=== PATIENT | female | born 1955 | race Caucasian/White ===

== ENCOUNTER 2017-01-08 13:02 | Day surgery (SDC) | payer OTHER ==
[2017-01-07 13:18] LABS: ASPARTATE AMINO TRANSFERASE 27 U/L (15-37); BLOOD UREA NITROGEN 16 mg/dL (7-18)
[~2017-01-08] VITALS: Ht 177.8 cm; Wt 77.0 kg
[~2017-01-08 13:02] MED LIST: ASPI-496 PO; BUPR150T6 PO; CALC-451 PO; ESTR10TA PO; FISH1CAP PO; HYDR-3245 PO; IBUP-1222 PO; LISI-170 PO; LUTE1CAP PO; METO25TA91 PO; METR250T12 PO; MULT-516 PO; VITA1TAB19 PO; [UNRECOGNIZED DRUG - CODE] PO
[2017-01-08 13:51] VITALS: BP 132/88
[2017-01-08] MEDS ORDERED: LACTATED RINGERS 1,000 ML IV SCH (13:56)
[2017-01-08] MEDS ORDERED: LIDOCAINE 1%, 2ML SQ PRN (14:00)
[2017-01-08] MEDS ORDERED: CHLORHEXIDINE MOUTHWASH 15 ML UDC ONE (14:17)
[2017-01-08] MEDS ORDERED: MIDAZOLAM 1 MG/ML, 2ML ONE (14:52)
[2017-01-08] MEDS ORDERED: FENTANYL PF 100 MCG/2ML ONE (14:53)
[2017-01-08] MEDS ORDERED: PROPOFOL 10 MG/ML, 20ML ONE (15:33)
[2017-01-08 16:44] LABS: HEMATOCRIT 43.6 % (34.6-47.8); HEMOGLOBIN 14.9 g/dL (11.7-16.4); WHITE BLOOD COUNT 5.3 x10^3/uL (3.4-10)
[2017-01-08 16:45] LABS: ASPARTATE AMINO TRANSFERASE 402 U/L (15-37); BLOOD UREA NITROGEN 12 mg/dL (7-18)
== END 2017-01-08 17:30 ==
LOC: OUT 13:02
PROVIDERS: ATTEND Internal Medicine Gastroenterology
DX: K29.50 Unspecified chronic gastritis without bleeding (principal); K22.2 Esophageal obstruction; K44.9 Diaphragmatic hernia without obstruction or gangrene; F17.210 Nicotine dependence, cigarettes, uncomplicated; J44.9 Chronic obstructive pulmonary disease, unspecified; Z98.51 Tubal ligation status; Z90.49 Acquired absence of other specified parts of digestive tract; Z98.890 Other specified postprocedural states; Z88.8 Allergy status to other drugs, medicaments and biological substances
CPT/HCPCS: 36415; 43239; 43259; 80053; 85025; 88305; 93005; J2250; J2704; J3010